=== PATIENT | female | born 1970 | race Caucasian/White ===

== ENCOUNTER 2017-07-05 18:03 | Emergency (ER) | payer MEDICARE, BC ==
[~2017-07-05] VITALS: Ht 170.2 cm; Wt 100.0 kg
[2017-07-05 18:36] VITALS: BP 102/64; PULSE 58; RESP 17; TEMP 98.7; O2SAT 100
--- NOTE | 2017-07-05 19:21 | PD ---
HPI Chief Complaint: Medical Clearance Time Seen by Provider: 19:16 Travel History International Travel<30 days: No Contact w/Intl Traveler<30days: No Traveled to known affect area: No History of Present Illness HPI 46-year-old female with ESRD on HD, reports that she receives dialysis 5 days a week, last dialyzed 3 days ago, here on vacation from [place], supposed to have dialysis set up with [facility], however when she went there today they apparently did not have dialysis for her arranged, here for dialysis. The patient states she is here only for dialysis and is only willing to have blood work done. She is declining EKG or any other studies. She denies chest pain or dyspnea. [facility] Social History Tobacco Use: No (former smoker) Allergies-Medications (Allergen,Severity, Reaction): Coded Allergies: No Known Allergies (Unverified , 07/05/17) Review of Systems Except as stated in HPI: all other systems reviewed are Neg Physical Exam Narrative GENERAL: Well-developed, well-nourished, comfortable, no apparent distress. SKIN: Focused skin assessment warm/dry. HEAD: Atraumatic. Normocephalic. EYES: Pupils equal and round. No scleral icterus. No injection or drainage. ENT: Mucous membranes pink and moist. NECK: Trachea midline. No JVD. CARDIOVASCULAR: Regular rate and rhythm. Left forearm fistula with thrill and bruit. RESPIRATORY: No accessory muscle use. Clear to auscultation. Breath sounds equal bilaterally. MUSCULOSKELETAL: No obvious deformities. No clubbing. No cyanosis. No edema. NEUROLOGICAL: Awake and alert. No obvious cranial nerve deficits. Motor grossly within normal limits. Normal speech. PSYCHIATRIC: Appropriate mood and affect; insight and judgment normal. Data Data Last Documented VS Vital Signs Date Time Temp Pulse Resp B/P (MAP) Pulse Ox O2 Delivery O2 Flow Rate FiO2 07/05/17 20:54 07/05/17 19:52 96 Room Air 07/05/17 19:30 59 16 07/05/17 18:36 98.7 Orders Orders Basic Metabolic Panel (Bmp) (07/05/17 19:18) Complete Blood Count With Diff (07/05/17 19:18) Prothrombin Time / Inr (Pt) (07/05/17 19:18) Act Partial Throm Time (Ptt) (07/05/17 19:18) Iv Access Insert/Monitor (07/05/17 19:18) Ecg Monitoring (07/05/17 19:18) Oximetry (07/05/17 19:18) Sodium Chloride 0.9% Flush (Ns Flush) (07/05/17 19:30) Ed Discharge Order (07/05/17 20:39) Labs Laboratory Tests Test 07/05/17 19:28 White Blood Count 5.8 TH/MM3 Red Blood Count 3.62 MIL/MM3 Hemoglobin 10.6 GM/DL Hematocrit 31.1 % Mean Corpuscular Volume 85.9 FL Mean Corpuscular Hemoglobin 29.2 PG Mean Corpuscular Hemoglobin Concent 34.0 % Red Cell Distribution Width 15.9 % Platelet Count 219 TH/MM3 Mean Platelet Volume 7.5 FL Neutrophils (%) (Auto) 61.5 % Lymphocytes (%) (Auto) 25.9 % Monocytes (%) (Auto) 10.0 % Eosinophils (%) (Auto) 2.1 % Basophils (%) (Auto) 0.5 % Neutrophils # (Auto) 3.6 TH/MM3 Lymphocytes # (Auto) 1.5 TH/MM3 Monocytes # (Auto) 0.6 TH/MM3 Eosinophils # (Auto) 0.1 TH/MM3 Basophils # (Auto) 0.0 TH/MM3 CBC Comment DIFF FINAL Differential Comment Prothrombin Time 10.0 SEC Prothromb Time International Ratio 1.0 RATIO Activated Partial Thromboplast Time 22.6 SEC Blood Urea Nitrogen 79 MG/DL Creatinine 12.82 MG/DL Random Glucose 88 MG/DL Calcium Level 10.6 MG/DL Sodium Level 138 MEQ/L Potassium Level 4.2 MEQ/L Chloride Level 102 MEQ/L Carbon Dioxide Level 22.6 MEQ/L Anion Gap 13 MEQ/L Estimat Glomerular Filtration Rate 3 ML/MIN [facility] Medical Decision Making Medical Screen Exam Complete: Yes Emergency Medical Condition: Yes Differential Diagnosis End-stage renal disease, metabolic abnormality Narrative Course Initial vital signs show heart rate 58, blood pressure 102/64, pulse ox 100% on room air, oral temp of 98.7F. CBC: WBC 5.8, hemoglobin 10.6, hematocrit 31.1, platelets 219. CMP is remarkable for BUN 79, creatinine 12.8, GFR 3, potassium 4.2 with slight hemolysis, bicarbonate 22.6. Case discussed with on-call radiological equipment specialist Dr. Quach. The patient does not require emergent dialysis and can either be admitted for overnight observation for dialysis here in the morning where she can follow-up at [facility] tomorrow. Patient was made aware of all findings. She prefers to go home. She was advised on when to return to the emergency department. She verbalizes understanding and agreement with plan. Diagnosis Primary Impression: End stage renal disease Referrals: Rides Attendant 1 day Additional Instructions: Follow-up at dialysis center tomorrow. Return to the emergency department for worsening symptoms or any other concerns as discussed. Disposition: 01 DISCHARGE HOME Condition: Stable Joe Chin MD Jul 05, 2017 19:21
[2017-07-05 19:30] VITALS: BP 121/69; PULSE 59; RESP 16; O2SAT 96
[2017-07-05] MEDS ORDERED: SODIUM CHLORIDE 0.9% FLUSH 10 ML FLUSH IV FLUSH PRN (19:30)
[2017-07-05 19:42] LABS: AUTOMATED NEUTROPHIL # 3.6 TH/MM3 (1.8-7.7); BASOPHIL % 0.5 % (0.0-2.0); EOSINOPHIL # 0.1 TH/MM3 (0-0.4); EOSINOPHIL % 2.1 % (0.0-4.0); HEMATOCRIT 31.1 % (35.0-46.0); HEMOGLOBIN 10.6 GM/DL (11.6-15.3); LYMPH % 25.9 % (9.0-44.0); LYMPHOCYTE # 1.5 TH/MM3 (1.0-4.8); MEAN CELL VOLUME 85.9 FL (80.0-100.0); MEAN CORPUSCULAR HEMOGLOBIN 29.2 PG (27.0-34.0); MEAN PLATELET VOLUME 7.5 FL (7.0-11.0); MONOCYTE # 0.6 TH/MM3 (0-0.9); NEUT % 61.5 % (16.0-70.0); PLATELET COUNT 219 TH/MM3 (150-450); RED BLOOD COUNT 3.62 MIL/MM3 (4.00-5.30); RED CELL DISTRIBUTION WIDTH 15.9 % (11.6-17.2); WHITE BLOOD COUNT 5.8 TH/MM3 (4.0-11.0)
[2017-07-05 19:52] VITALS: O2SAT 96
[2017-07-05 20:17] LABS: BICARBONATE 22.6 MEQ/L (21.0-32.0); CALCIUM 10.6 MG/DL (8.5-10.1)
[2017-07-05 20:26] LABS: CREATININE 12.82 MG/DL (0.50-1.00)
== END 2017-07-05 20:56 | disposition home or self-care (01) ==
LOC: NEPE 18:03
DX: N18.6 End stage renal disease (principal); Z99.2 Dependence on renal dialysis
CPT/HCPCS: 80048; 85025; 85610; 85730; 99283